=== PATIENT | male | born 1940 | race Caucasian/White ===

== ENCOUNTER 2020-08-19 06:21 | Day surgery (SDC) | payer MEDICARE, OTHER ==
[~2020-08-19] VITALS: Ht 172.7 cm; Wt 91.2 kg
[2020-08-19] VITALS (11 sets, daily range): BP systolic 130–146; BP diastolic 79–97
[~2020-08-19 06:21] MED LIST: AMLO1CAP59 PO; ASPI-1264 PO; ATOR10TA87 PO; CELE-193 PO; CHOL40002 PO; VITC500T PO
[2020-08-19] MEDS ORDERED: VITA-268 PO (07:52)
[2020-08-19] MEDS ORDERED: MELO10CA PO (07:52)
[2020-08-19] MEDS ORDERED: CHOL50004 PO (07:52)
[2020-08-19] MEDS ORDERED: DOCU-148 PO (07:52)
[2020-08-19] MEDS ORDERED: POTA-82 PO (08:14)
[2020-08-19] MEDS ORDERED: FURO-150 PO (08:14)
[2020-08-19] MEDS: albumin 25% 100mL bottle x 1 IV PRN (09:33)
== END 2020-08-19 11:17 | disposition home or self-care (01) ==
LOC: SSTAY O 06:21
PROVIDERS: ATTEND Radiology Vascular & Interventional Radiology
DX: R18.8 Other ascites (principal); I10 Essential (primary) hypertension; E78.5 Hyperlipidemia, unspecified; G89.29 Other chronic pain; Z98.890 Other specified postprocedural states; Z72.89 Other problems related to lifestyle; Z79.899 Other long term (current) drug therapy; Z87.891 Personal history of nicotine dependence
CPT/HCPCS: 49083; P9047

== ENCOUNTER 2020-09-16 07:36 | Day surgery (SDC) | payer MEDICARE, OTHER ==
[2020-09-16] VITALS (7 sets, daily range): BP systolic 137–151; BP diastolic 80–98
[~2020-09-16] VITALS: Ht 172.7 cm; Wt 85.8 kg
[~2020-09-16 07:36] MED LIST changes: -ASPI-1264 PO; -CELE-193 PO; -CHOL40002 PO; +CHOL50004 PO; +DOCU-148 PO; +FURO-150 PO; +MELO10CA PO; +POTA-82 PO; +VITA-268 PO
[2020-09-16] MEDS ORDERED: ASCO-196 PO (08:46)
[2020-09-16] MEDS ORDERED: PRED10TA PO (08:46)
[2020-09-16] MEDS ORDERED: FURO-149 PO (08:46)
[2020-09-16] MEDS ORDERED: POTA8CAP20 PO (08:46)
[2020-09-16] MEDS ORDERED: Antibiotic PO (08:46)
[2020-09-16] MEDS ORDERED: MELO-102 PO (08:46)
[2020-09-16] MEDS: albumin 25% 100mL bottle x 1 IV PRN (08:53)
== END 2020-09-16 10:30 | disposition home or self-care (01) ==
LOC: SSTAY O 07:36
PROVIDERS: ATTEND Radiology Diagnostic Radiology
DX: R18.8 Other ascites (principal); I10 Essential (primary) hypertension; E78.5 Hyperlipidemia, unspecified; G89.29 Other chronic pain; Z98.890 Other specified postprocedural states; Z79.899 Other long term (current) drug therapy; Z87.891 Personal history of nicotine dependence
CPT/HCPCS: 49083; P9047

== ENCOUNTER 2020-09-28 10:46 | Day surgery (SDC) | payer MEDICARE, OTHER ==
[2020-09-28] VITALS (13 sets, daily range): BP systolic 114–140; BP diastolic 68–84
[~2020-09-28] VITALS: Ht 172.7 cm; Wt 81.0 kg
[~2020-09-28 10:46] MED LIST changes: +ASCO-196 PO; +Antibiotic PO; +FURO-149 PO; -FURO-150 PO; +MELO-102 PO; -MELO10CA PO; -POTA-82 PO; +POTA8CAP20 PO; +PRED10TA PO; -VITC500T PO
[2020-09-28 11:48] LABS: BASOPHILS # (AUTO) 0.1 X10'3 (0-0.2); BASOPHILS % (AUTO) 0.8 % (0-1); EOSINOPHILS # (AUTO) 0.1 X10'3 (0-0.9); EOSINOPHILS % (AUTO) 0.7 % (0-6); HEMATOCRIT 44.4 % (42.0-52.0); HEMOGLOBIN 14.4 g/dl (14.0-17.9); LYMPHOCYTES # (AUTO) 0.5 X10'3 (1.1-4.8); MEAN CORPUSCULAR HEMOGLOBIN 25.9 PG (27.0-31.0); MEAN CORPUSCULAR HGB CONC 32.5 g/dL (33.0-36.5); MEAN CORPUSCULAR VOLUME 79.8 FL (78-98); MEAN PLATELET VOLUME 8.2 FL (7.4-10.4); MONOCYTES # (AUTO) 0.8 X10'3 (0-0.9); MONOCYTES % (AUTO) 11.5 % (2-12); NEUTROPHILS # (AUTO) 5.7 X10'3 (1.8-7.7); PLATELET COUNT 430 X10'3 (140-440); RED BLOOD COUNT 5.56 X10'6 (4.70-6.10); RED CELL DISTRIBUTION WIDTH 18.6 % (11.5-14.5); WHITE BLOOD COUNT 7.1 X10'3 (4.5-11.0)
[2020-09-28] MEDS ORDERED: normal saline 1000ml 1,000 ML IV PRN (11:50)
[2020-09-28] MEDS ORDERED: albumin 25% 100mL bottle x 1 IV PRN (11:50)
[2020-09-28] MEDS ORDERED: fentaNYL/PF 50MCG/1 ML 2ML syringe ONE (13:33)
[2020-09-28] MEDS ORDERED: gelatin sponge, absorbable (Gelfoam 12-7MM) sponge TP ONE (13:40)
[2020-09-28 13:55] LABS: PLATELET ESTIMATE NORMAL
[2020-09-28 13:57] LABS: ANISOCYTOSIS 2+; BURR CELLS FEW; ELLIPTOCYTES FEW; LARGE PLATELETS FEW; MICROCYTOSIS 1+
== END 2020-09-28 15:15 | disposition home or self-care (01) ==
LOC: SSTAY O 10:46
PROVIDERS: ATTEND Radiology Vascular & Interventional Radiology
DX: K66.8 Other specified disorders of peritoneum (principal); R18.8 Other ascites; C48.1 Malignant neoplasm of specified parts of peritoneum; I10 Essential (primary) hypertension; E78.5 Hyperlipidemia, unspecified; G89.29 Other chronic pain; Z98.890 Other specified postprocedural states; Z72.89 Other problems related to lifestyle; Z87.891 Personal history of nicotine dependence; Z79.899 Other long term (current) drug therapy
CPT/HCPCS: 36415; 49083; 49180; 76942; 85025; 85610; 88341; 88342; J3010; J7030; P9047; 85008; 88305

== ENCOUNTER 2020-10-11 07:16 | Day surgery (SDC) | payer MEDICARE, OTHER ==
[~2020-10-11] VITALS: Ht 172.7 cm; Wt 80.0 kg
[2020-10-11] VITALS (9 sets, daily range): BP systolic 108–127; BP diastolic 62–83
[~2020-10-11 07:16] MED LIST changes: -Antibiotic PO; -PRED10TA PO
[2020-10-11] MEDS ORDERED: albumin 25% 100mL bottle x 1 IV PRN (07:40)
[2020-10-11] MEDS ORDERED: FLUTICASONE PROP (07:53)
== END 2020-10-11 10:40 | disposition home or self-care (01) ==
LOC: SSTAY O 07:16
PROVIDERS: ATTEND Radiology Diagnostic Radiology
DX: J90 Pleural effusion, not elsewhere classified (principal); R18.8 Other ascites; I10 Essential (primary) hypertension; E78.5 Hyperlipidemia, unspecified; G89.29 Other chronic pain; Z98.890 Other specified postprocedural states; Z87.891 Personal history of nicotine dependence; Z79.899 Other long term (current) drug therapy
CPT/HCPCS: 32555; 49083; 71045; P9047

== ENCOUNTER 2020-10-24 07:26 | Day surgery (SDC) | payer MEDICARE, OTHER ==
[2020-10-24] VITALS (7 sets, daily range): BP systolic 92–117; BP diastolic 53–72
[~2020-10-24 07:26] MED LIST changes: +FLUTICASONE PROP
[2020-10-24] MEDS ORDERED: FOLI0.4T6 PO (08:00)
== END 2020-10-24 10:20 | disposition home or self-care (01) ==
LOC: SSTAY O 07:26
PROVIDERS: ATTEND Radiology Vascular & Interventional Radiology
DX: R18.8 Other ascites (principal); J90 Pleural effusion, not elsewhere classified; I10 Essential (primary) hypertension; E78.5 Hyperlipidemia, unspecified; G89.29 Other chronic pain; Z98.890 Other specified postprocedural states; Z87.891 Personal history of nicotine dependence; Z79.899 Other long term (current) drug therapy; Z85.89 Personal history of malignant neoplasm of other organs and systems
CPT/HCPCS: 32555; 49083

== ENCOUNTER 2020-11-07 07:35 | Day surgery (SDC) | payer MEDICARE, OTHER ==
[~2020-11-07] VITALS: Ht 170.2 cm; Wt 75.2 kg
[2020-11-07] VITALS (8 sets, daily range): BP systolic 89–112; BP diastolic 41–70
[~2020-11-07 07:35] MED LIST changes: +FOLI0.4T6 PO; -FURO-149 PO; -MELO-102 PO; -POTA8CAP20 PO
[2020-11-07] MEDS ORDERED: albumin 25% 100mL bottle x 1 IV PRN (07:55)
[2020-11-07] MEDS ORDERED: FLUT16SP11 BOTHNARES (08:02)
[2020-11-07] MEDS ORDERED: DEXA4TAB68 PO (08:04)
== END 2020-11-07 10:10 | disposition home or self-care (01) ==
LOC: SSTAY O 07:35
PROVIDERS: ATTEND Radiology Diagnostic Radiology
DX: R18.8 Other ascites (principal); J90 Pleural effusion, not elsewhere classified; I10 Essential (primary) hypertension; E78.5 Hyperlipidemia, unspecified; G89.29 Other chronic pain; Z98.890 Other specified postprocedural states; Z87.891 Personal history of nicotine dependence; Z79.899 Other long term (current) drug therapy
CPT/HCPCS: 32555; 49083; P9047

== ENCOUNTER 2020-11-17 07:26 | Day surgery (SDC) | payer MEDICARE, OTHER ==
[~2020-11-17] VITALS: Ht 154.9 cm; Wt 70.6 kg
[2020-11-17] VITALS (8 sets, daily range): BP systolic 99–118; BP diastolic 8–73
[~2020-11-17 07:26] MED LIST changes: +DEXA4TAB68 PO; +FLUT16SP11 BOTHNARES; -FLUTICASONE PROP
[2020-11-17] MEDS ORDERED: albumin 25% 100mL bottle x 1 IV PRN (07:55)
[2020-11-17] MEDS ORDERED: LIDOcaine 1% (10mg/ml) 2ml vial ONE (08:36)
== END 2020-11-17 11:07 | disposition home or self-care (01) ==
LOC: SSTAY O 07:26
PROVIDERS: ATTEND Radiology Vascular & Interventional Radiology
DX: J90 Pleural effusion, not elsewhere classified (principal); R18.8 Other ascites; R14.0 Abdominal distension (gaseous); I10 Essential (primary) hypertension; E78.5 Hyperlipidemia, unspecified; G89.29 Other chronic pain; Z98.890 Other specified postprocedural states; Z72.89 Other problems related to lifestyle; Z87.891 Personal history of nicotine dependence; Z79.899 Other long term (current) drug therapy
CPT/HCPCS: 32555; 76705; J2001; P9047

== ENCOUNTER 2020-11-25 07:25 | Day surgery (SDC) | payer MEDICARE, OTHER ==
[2020-11-25] VITALS (7 sets, daily range): BP systolic 85–122; BP diastolic 53–75
[~2020-11-25] VITALS: Ht 170.2 cm; Wt 72.4 kg
[~2020-11-25 07:25] MED LIST changes: -ASCO-196 PO; -VITA-268 PO
[2020-11-25] MEDS ORDERED: albumin 25% 100mL bottle x 1 IV PRN (07:55)
[2020-11-25] MEDS ORDERED: FURO40TA4 PO (07:58)
[2020-11-25] MEDS ORDERED: POTA8CAP20 PO (07:59)
[2020-11-25] MEDS ORDERED: normal saline 1000ml 1,000 ML IV SCH (08:30)
== END 2020-11-25 11:06 | disposition home or self-care (01) ==
LOC: SSTAY O 07:25
PROVIDERS: ATTEND Radiology Vascular & Interventional Radiology
DX: J90 Pleural effusion, not elsewhere classified (principal); R18.8 Other ascites; R14.0 Abdominal distension (gaseous); I10 Essential (primary) hypertension; E78.5 Hyperlipidemia, unspecified; G89.29 Other chronic pain; Z79.899 Other long term (current) drug therapy; Z98.890 Other specified postprocedural states; Z87.891 Personal history of nicotine dependence
CPT/HCPCS: 32555; 76705; J7030

== ENCOUNTER 2020-12-02 07:30 | Day surgery (SDC) | payer MEDICARE, OTHER ==
[~2020-12-02] VITALS: Ht 170.2 cm; Wt 64.7 kg
[~2020-12-02 07:30] MED LIST changes: -DEXA4TAB68 PO; -FLUT16SP11 BOTHNARES; +FURO40TA4 PO; +POTA8CAP20 PO
[2020-12-02 07:50] VITALS: BP 114/71
[2020-12-02] MEDS ORDERED: normal saline 1000ml 1,000 ML IV PRN (07:55)
[2020-12-02] MEDS ORDERED: albumin 25% 100mL bottle x 1 IV PRN (07:55)
[2020-12-02] MEDS ORDERED: DOCU100C40 PO (08:11)
[2020-12-02] MEDS ORDERED: DEXA4TAB75 PO (08:11)
[2020-12-02 09:35] VITALS: BP 97/71
[2020-12-02 09:47] VITALS: BP 123/81
[2020-12-02 09:55] VITALS: BP 120/46
[2020-12-02 10:10] VITALS: BP 109/73
[2020-12-02 10:30] VITALS: BP 111/69
== END 2020-12-02 10:30 | disposition home or self-care (01) ==
LOC: SSTAY O 07:30
PROVIDERS: ATTEND Radiology Vascular & Interventional Radiology
DX: J90 Pleural effusion, not elsewhere classified (principal); R18.8 Other ascites; R14.0 Abdominal distension (gaseous); I10 Essential (primary) hypertension; E78.5 Hyperlipidemia, unspecified; G89.29 Other chronic pain; Z20.822 Contact with and (suspected) exposure to COVID-19
CPT/HCPCS: 32555; 49083

== ENCOUNTER 2020-12-09 07:30 | Day surgery (SDC) | payer MEDICARE, OTHER ==
[~2020-12-09] VITALS: Ht 170.2 cm; Wt 65.0 kg
[2020-12-09] VITALS (7 sets, daily range): BP systolic 112–129; BP diastolic 70–82
[~2020-12-09 07:30] MED LIST changes: +DEXA4TAB75 PO; +DOCU100C40 PO
[2020-12-09] MEDS ORDERED: albumin 25% 100mL bottle x 1 IV PRN (07:55)
== END 2020-12-09 10:30 | disposition home or self-care (01) ==
LOC: SSTAY O 07:30
PROVIDERS: ATTEND Radiology Vascular & Interventional Radiology
DX: R18.8 Other ascites (principal); R14.0 Abdominal distension (gaseous); J90 Pleural effusion, not elsewhere classified; I10 Essential (primary) hypertension; E78.5 Hyperlipidemia, unspecified; G89.29 Other chronic pain; Z98.890 Other specified postprocedural states; Z87.891 Personal history of nicotine dependence; Z79.899 Other long term (current) drug therapy
CPT/HCPCS: 32555; 49083; 76705

== ENCOUNTER 2020-12-16 07:52 | Day surgery (SDC) | payer MEDICARE, OTHER ==
[~2020-12-16] VITALS: Ht 170.2 cm; Wt 65.9 kg
[~2020-12-16 07:52] MED LIST changes: -DOCU-148 PO
[2020-12-16 08:08] VITALS: BP 116/77
[2020-12-16] MEDS ORDERED: albumin 25% 100mL bottle x 1 IV PRN (08:25)
[2020-12-16 09:30] VITALS: BP 128/82
--- NOTE | 2020-12-16 11:02 | NUR ---
Limited Ultrasound completed. Minimal fluid found at lungs, not enough to complete procedure. No fluid found on abdomen. Addendum: 12/16/20 at 1111 by Cris Joel RN Noted from 12/16/20 at 0930.
== END 2020-12-16 09:35 | disposition home or self-care (01) ==
LOC: SSTAY O 07:52
PROVIDERS: ATTEND Radiology Vascular & Interventional Radiology
DX: R18.8 Other ascites (principal); R14.0 Abdominal distension (gaseous); J90 Pleural effusion, not elsewhere classified; I10 Essential (primary) hypertension; E78.5 Hyperlipidemia, unspecified; G89.29 Other chronic pain; Z87.891 Personal history of nicotine dependence; Z98.890 Other specified postprocedural states; Z79.899 Other long term (current) drug therapy
CPT/HCPCS: 76604; 76705

== ENCOUNTER 2020-12-26 07:30 | Day surgery (SDC) | payer MEDICARE, OTHER ==
[~2020-12-26] VITALS: Ht 170.2 cm; Wt 63.7 kg
[~2020-12-26 07:30] MED LIST changes: -DOCU100C40 PO
[2020-12-26 07:55] VITALS: BP 91/63
[2020-12-26] MEDS ORDERED: albumin 25% 100mL bottle x 1 IV PRN (08:05)
[2020-12-26 09:00] VITALS: BP 109/77
[2020-12-26 09:06] VITALS: BP 99/69
[2020-12-26 09:15] VITALS: BP 99/67
[2020-12-26 09:25] VITALS: BP 111/71
== END 2020-12-26 09:30 | disposition home or self-care (01) ==
LOC: SSTAY O 07:30
PROVIDERS: ATTEND Radiology Vascular & Interventional Radiology
DX: J90 Pleural effusion, not elsewhere classified (principal); I10 Essential (primary) hypertension; E78.5 Hyperlipidemia, unspecified; G89.29 Other chronic pain; Z87.891 Personal history of nicotine dependence; Z98.890 Other specified postprocedural states; Z79.899 Other long term (current) drug therapy
CPT/HCPCS: 32555